=== PATIENT | male | born 1935 | race Caucasian/White ===

== ENCOUNTER → 2018-03-12 | Outpatient (CLI) | payer OTHER ==
[~2018-03-12] MED LIST: ALLOPURINOL100 MG PO; ASPIRIN EC81 MG PO; BYSTOLIC2.5 MG PO; LIVALO2 MG PO; NORVASC10 MG PO; WELCHOL625 MG PO
--- NOTE | 2018-03-13 07:15 | Diagnostic Imaging Report ---
EXAMINATION: MRI of the cervical spine without contrast HISTORY: Neck and posterior head pain for the last 3 weeks, cervical radiculopathy COMPARISON: None available TECHNIQUE: Sagittal T1, T2, STIR; axial T2, gradient echo. FINDINGS: Curvature: Normal lordosis. Vertebrae: No evidence of neoplasm, infection, or fracture. Foramen magnum: No mass, Chiari malformation, or basilar invagination. Spinal Cord: Normal size and signal intensity. Soft Tissues: Unremarkable. Degenerative changes: C1-C2: Unremarkable. C2-C3: Facet arthrosis without stenoses C3-C4: Small disc osteophyte, bilateral uncovertebral and facet arthrosis. Mild canal and bilateral foraminal narrowing. C4-C5: Disc osteophyte complex formation, bilateral uncovertebral and facet arthrosis. No significant canal or foraminal stenoses. C5-C6: Disc osteophyte complex formation, bilateral uncovertebral and facet arthrosis. Minimal bilateral foraminal narrowing. C6-C7: Uncovertebral and facet arthrosis. Minimal foraminal narrowing. No canal stenosis. C7-T1: Unremarkable. IMPRESSION: 1. No acute post traumatic cervical spine abnormalities. 2. Mild degenerative spinal canal and foraminal stenosis at C3-C4. 3. Mild multilevel degenerative changes in the remaining levels without significant spinal canal or foraminal stenosis as detail above. Signed by: Dr. Karli Mays M.D. on 03/13/2018 7:11 AM
== END ==
LOC: MRI 08:23
PROVIDERS: ATTEND Family Medicine
DX: M54.2 Cervicalgia (principal); M54.12 Radiculopathy, cervical region
CPT/HCPCS: 72141

== ENCOUNTER 2020-07-13 10:16 | Emergency (ER) | payer MEDICARE ==
[~2020-07-13] VITALS: Ht 177.8 cm; Wt 69.5 kg
[2020-07-13] MEDS ORDERED: TETANUS/DIPHTHERIA TOX ADULT 0.5 ML SYR IM ONE (10:45)
[2020-07-13] MEDS ORDERED: ONDANSETRON HCL INJ 2MG/ML 2ML 2 MG/ML VIAL IV STA (10:48)
--- NOTE | 2020-07-13 10:57 | Emergency Department Note ---
History of Present Illnes History of Present Illness Chief Complaint: fell approx 36 hours ago pain to right ribs History of Present Illness This is a 85 year old male . Historian: Patient Arrival Mode: Car Water Supervisor Required: No Onset (how long ago): day(s) (1.5) Location: right ribs RUQ abd and left forearm Radiation: Reports non-radiation Severity: moderate, severe Onset quality: sudden Duration (how long): day(s) (1.5) Timing of current episode: constant Progression: worsening Chronicity: new Relieving factors: none Exacerbating factors: movement, other (deep breath) Treatments prior to arrival: none Risk factors: elderly Past Medical/Family History Physician Review I have reviewed the patient's past medical and family history. Any updates have been documented here. Past Medical History Past Medical History: Hypertension Other Medical History: Stage 4 renal insufficiency Past Surgical History: T&A Other Surgery: Shoulder surgery Social History Smoking Cessation: Current every day smoker Counseling Performed: Yes Alcohol Use: Occasional Any Illegal Drug Use: No TB Exposure/Symptoms: No Physically hurt or threatened: No Other Any Pre-Existing Lines (PICC,: No Is patient up to date on immun: No Review of Systems Review of Systems Constitutional: Reports no symptoms EENTM: Reports no symptoms Cardiovascular: Reports no symptoms Respiratory: Reports pain on inspiration Gastrointestinal: Reports abdominal pain (mild right upper quad abdoinal pain) Genitourinary: Reports no symptoms Musculoskeletal: Reports other (bruis to left forearm) Integumentary: Reports no symptoms Neurological: Reports no symptoms, Reports other (no sycope or presyncopal symptoms prior to the fall. Also no dizziness ) Psychological: Reports no symptoms Endocrine: Reports no symptoms Hematological/Lymphatic: Reports no symptoms Review of other systems: All other systems negative Physical Exam Related Data Allergies: Coded Allergies: No Known Allergies (Unverified , 09/27/13) Vital signs reviewed: Yes Physical Exam CONSTITUTIONAL Constitutional: Present well-developed, Present well-nourished HENT HENT: Present normocephalic, Present atraumatic EYES Eyes: Reports PERRL, Reports conjunctivae normal, Reports EOM normal, Reports lids normal NECK Neck: Present ROM normal, Present supple PULMONARY Pulmonary: Present breath sounds normal, Present chest tenderness (right lower rib area) CARDIOVASCULAR Cardiovascular: Present regular rhythm, Present heart sounds normal, Present intact distal pulses, Present capillary refill normal, Present normal rate GASTROINTESTINAL Abdominal: Present soft, Present bowel sounds normal, Present tender (RUQ mildly tender) GENITOURINARY Genitourinary: Present exam deferred SKIN Skin: Present warm, Present dry, Present bruising (lateral right lower chest wall and mid forearm left side with a small skin tear) MUSCULOSKELETAL Musculoskeletal: Present ROM normal, Present tenderness (as above forearm) NEUROLOGICAL Neurological: Present alert, Present oriented x 3, Present DTRs normal, Present no gross motor or sensory deficits PSYCHOLOGICAL Psychological: Present mood/affect normal, Present behavior normal, Present thought content normal, Present judgement normal Results Laboratory Laboratory CBC wnl except for wbc 10.7 mildly elevated.. chem bun 39 with creatinne of 2.5 ow wnl Imaging Imaging results reviewed: Yes Impressions 7th thru 10 right lateral rib fractures no pneumo or hemothorax Assessment & Plan Medical Decision Making MDM felling better after morphine . will discharge with tylenol # 3 and needs to follow up with PMD Reassessment Reassessment time: 12:48 (felling better) Assessment & Plan Final Impression: (1) Rib fracture Depart Disposition: HOME, SELF-assisted Meds Active Scripts Acetaminophen/Codeine* (TYLENOL # 3*) 1 Ea Tab, 1 TAB PO QID PRN for pain for 5 Days, #20 0 Refills Prov:RAMESH KING MD 07/13/20 Reported Medications Rosuvastatin Calcium (CRESTOR) 10 Mg Tab, HS THERAPEUTICALLY SUBSTITUTED WITH SIMVASTATIN 40MG 07/13/20 Aspirin (ASPIRIN EC) 81 Mg Tablet.dr, 81 MG PO DAILY 09/27/13 Allopurinol (ALLOPURINOL) 100 Mg Tablet, 100 MG PO PRN 09/27/13 Nebivolol Hcl (BYSTOLIC) 2.5 Mg Tablet, 5 MG PO HS 09/27/13 Amlodipine Besylate (NORVASC) 10 Mg Tab, 10 MG PO DAILY 09/27/13 Discontinued Reported Medications Colesevelam Hcl (WELCHOL) 625 Mg Tablet, 625 MG PO BID 09/27/13 Pitavastatin Calcium (LIVALO) 2 Mg Tablet, 2 MG PO DAILY 09/27/13 Medications in the ED Tetanus/ Diphtheria Toxoids 0.5 ml ONCE ONCE IM ; Start 07/13/20 at 10:45; Stop 07/13/20 at 10:46; Status DC RAMESH KING MD Jul 13, 2020 10:57
[2020-07-13] MEDS ORDERED: MORPHINE SULFATE INJ 4 MG/ML INJ 1ML IV ONE (11:00)
--- OUTSIDE RECORDS SUMMARY | 2020-07-13 11:18 | XMS REPORT | Continuity of Care Document ---
Author Author [facility] t Organization [facility] Address [address] [place] [address] Phone Unavailable Care Team Providers Care Signing Agent Name Role Phone JUAN ANTNOIO ELDA Attphys Unavailable Payers Payer Name Policy Type Policy Number Effective Date Expiration Date S ource Problems This patient has no known problems. Allergies, Adverse Reactions, Alerts Allergy Name Allergy Type Status Severity Reaction(s) Onset Date Inacti ve Date Treating Clinician Comments Source No Known Allergies DA Active U 2014-01-06 00:00:00 [facility] Medications This patient has no known medications. Procedures This patient has no known procedures. Encounters Start Date/Time End Date/Time Encounter Type Admission Type Attendi [facility] Care Department Encounter ID Source 2019-04-01 08:18:00 2019-04-01 08:18:00 Outpatient [facility] [address] [facility] Results Test Description Test Time Test Comments Results Result Comments Source - Sling 2019-03-16 10:30:00 N kimberly: YOKO WILEY [facility] : 1935 Age/S: 84 / M [address] [facility] Unit #: [id number] Loc: [place] [address] Phys: Gaurang Austin MD Acct: [id number] Dis Date: Status: REG CLI PHONE #: [phone] Exam Date: 03/16/2019912 FAX #: [phone] Reason: N18.4 EXAMS: CPT CODE: [id number] [employer] [id number] HISTORY: Stage IV chronic kidney disease. COMPARISON: CT scan from April 18, 2015. Both kidneys are free from hydronephrosis and calyceal stones with marked hyperechogenicity bilaterally especially on the right suggesting severe chronic medical renal disease. No perinephric collections. Right kidney is measuring 10.3 x 5.4 x 5.1 cm. Innumerable Bosniak 1 lesions throughout the kidney. Left kidney measured 10.8 x 5.8 x 5 cm. Multiple Frank sniak 1 lesions as well with the largest measuring 3.7 cm in the lower pole. Unremarkable incompletely distended urinary bladder. IMPRESSION: Marked loss of corticomedullary differentiation bilaterally suggesting severe chronic medical renal disease. No hydronephrosis or calyceal stones with innumerable Bosniak 1 lesion bilaterally. Unremarkable incompletely distended urinary bladder. at 1030 Reported and signed by: Sanjiv Call M.D. CC: Gaurang Austin MD; Elda Wang Technologist: TERESA POWERS RT(R),[facility] Date/Time: 03/16/2019 (1030) [email or web address] Orig Print D/T: S: 03/16/2019 (1033) Probe: PAGE 1 Signed Report MRI SPINE CERVICAL WO [place] [address] Patient Name: YOKO WILEY MR #: [id number] : 1935 Age/Sex: 83/M Req #: [id number] [facility] Physician: Ordered by: ELDA WANG MD Report #: [id number] Location: MRI Room/Bed: Procedure: [id number] MRI/MRI SPINE CERVICAL WO Exam Date: Exam Time: REPORT STATUS: Signed EXAMINATION: MRI of the cervical spine without contrast HISTORY: Neck and posterior head pain for the last 3 weeks, cervical radiculopathy COMPARISON: None available TECHNIQUE: Sagittal T1, T2, STIR; axial T2, gradient echo. FINDINGS: Curvature: Normal lordosis. Vertebrae: No evidence of neoplasm, infection, or fracture. Foramen magnum: No mass, Chiari malformation, or basilar invagination. Spinal Cord: Normal size and signal intensity. Soft Tissues: Unremarkable. Degenerative changes: C1-C2: Unremarkable. C2-C3: Facet arthrosis without stenoses C3-C4: Small disc osteophyte, bilateral uncovertebral and facet arthrosis. Mild canal and bilateral foraminal narrowing. C4-C5: Disc osteophyte complex formation, bilateral uncovertebral and facet arthrosis. No significant canal or foraminal stenoses. C5-C6: Disc osteophyte complex formation, bilateral uncovertebral and facet arthrosis. Minimal bilateral foraminal narrowing. C6-C7: Uncovertebral and facet arthrosis. Minimal foraminal narrowing. No canal stenosis. C7-T1: Unremarkable. IMPRESSION: 1. No acute post traumatic cervical spine abnormalities. 2. Mild dege nerative spinal canal and foraminal stenosis at C3-C4. 3. Mild multilevel degenerative changes in the remaining levels without significant spinal canal or foraminal stenosis as detail above. Signed by: Dr. Daryl Mays M.D. on 03/13/2018 7:11 AM Dictated By: DARYL MAYS MD 0 Transcribed By: PAMELA on 03/13/18710 COPY TO: ELDA WANG MD
[2020-07-13] MEDS ORDERED: TETANUS/DIPHTHERIA TOX ADULT 0.5 ML SYR ONE (11:26)
[2020-07-13] MEDS ORDERED: BACITRACIN ZINC 0.9GM TP ONE (11:37)
[2020-07-13] MEDS ORDERED: CRESTOR10 MG (11:46)
--- NOTE | 2020-07-13 12:38 | Diagnostic Imaging Report ---
CT of the chest, abdomen, and pelvis, without contrast. History: ^FALL RIB PAIN Comparison: None available. Technique: CT of the chest, abdomen and pelvis without intravenous contrast and WITHOUT oral contrast. Dose modulation, iterative reconstruction, and/or weight-based adjustment of the mA/kV was utilized to reduce the radiation dose to as low as reasonably achievable. IV CONTRAST: None ORAL CONTRAST: None RADIATION DOSE: Total DLP: 554 mGy*cm COMPLICATIONS: None Discussion: LINES/ TUBES: None. LUNGS AND AIRWAYS: Mild apical emphysematous changes are noted. Lungs are mildly hyperexpanded. Negative for focal consolidation. No suspicious pulmonary nodule or mass. Trace basilar scarring is noted. PLEURA: The pleural spaces are clear. HEART AND MEDIASTINUM: The thyroid gland is normal. No mediastinal, hilar or axillary lymphadenopathy within the limitations of noncontrast technique. The heart is normal in size.. There is no pericardial effusion. Coronary artery calcifications are noted. HEPATOBILIARY: No focal hepatic lesions. Gallbladder is unremarkable. No biliary ductal dilatation. SPLEEN: No splenomegaly. PANCREAS: No focal masses or ductal dilatation. ADRENALS: No adrenal nodules. KIDNEYS/URETERS: There are multiple bilateral hypodense and isodense lesions within the kidneys. There are calcifications within the largest left hypodense lesion (axial image 35). A hyperdense lesion is noted within the left kidney anteriorly (axial image 32). Negative for hydronephrosis or renal calculus. Ureters are not dilated. PELVIC ORGANS/BLADDER: Urinary bladder is unremarkable. Prostate is within normal limits for size. Pelvic phlebolith are noted. No pelvic free fluid is noted. PERITONEUM/RETROPERITONEUM: No free air or fluid. LYMPH NODES: No lymphadenopathy. VESSELS: Moderate infrarenal calcified atherosclerotic changes of the abdominal aorta are noted. GI TRACT: Limited evaluation due to lack of IV and oral contrast. Stomach is decompressed. The descending and sigmoid colon are decompressed. Numerous diverticula are identified the sigmoid colon without surrounding inflammatory changes. Normal appendix is noted. Focal increased stool burden is noted in the proximal colon. BONES AND SOFT TISSUES: Within the posterior aspect of the right T5 vertebral body there is a well-circumscribed benign-appearing sclerotic lesion, likely a bone island (axial series image 47 of the chest). There are multiple right lateral lower rib fractures including the lateral aspect of the right eighth, ninth and 10th ribs. Question nondisplaced fracture of the right seventh rib. Mild displacement laterally of the 10th rib fractures (best noted on coronal abdominal series image #55). Mild to moderate multilevel degenerative changes of the thoracic spine are noted including calcification of the intervertebral disc space at T10-11. There are mild to moderate diffuse degenerative changes of the lumbar spine including advanced facet arthropathy at the lower lumbar spine. No compression deformities identified. No suspicious sclerotic or lytic lesion is identified. Soft tissues are unremarkable. IMPRESSION: 1. Multiple right lateral lower rib fractures extending from rib #8 through 10. Question additional nondisplaced fracture rib #7. Eighth and ninth rib fractures are not displaced. There is slight lateral displacement of the distal fragment of the 10th rib fracture. Negative for pneumothorax, adjacent hematoma or pleural effusion. No intra-abdominal free fluid or hematoma is identified. 2. Mild emphysematous changes. No suspicious pulmonary nodule or mass. 3. Multiple indeterminate bilateral hypodense and hyperdense renal lesions. Consider nonemergent follow-up contrast enhanced renal protocol MRI or CT. 4. Uncomplicated colonic diverticulosis. Signed by: Ranjith Peterson MD on 07/13/2020 12:35 PM
[2020-07-13] MEDS ORDERED: TYLENOL # 31 EA PO (12:49)
[2020-07-13 13:00] VITALS: BP 182/84
[2020-07-17] MEDS ORDERED: ASPIRIN EC81 MG PO (19:38)
== END 2020-07-13 13:13 | disposition home or self-care (01) ==
LOC: FSED 10:50
DX: S22.41XA Multiple fractures of ribs, right side, initial encounter for closed fracture (principal); R10.11 Right upper quadrant pain; M79.632 Pain in left forearm; I10 Essential (primary) hypertension; N28.9 Disorder of kidney and ureter, unspecified; F17.210 Nicotine dependence, cigarettes, uncomplicated
CPT/HCPCS: 71250; 74176; 80048; 85025; 90471; 90714; 96374; 96375; 99284; J2270; J2405

== ENCOUNTER → 2020-09-25 | Day surgery (SDC) | payer MEDICARE ==
[2020-09-21 09:58] LABS: INR 1.05; PROTHROMBIN TIME 14.2 seconds (11.9-14.5)
[2020-09-21 09:59] LABS: PARTIAL THROMBOPLASTIN TIME 40.9 seconds (23.8-35.5)
[2020-09-21 10:17] LABS: ANION GAP 13.1 mmol/L (8-16); CALCIUM 9.4 mg/dL (8.4-10.2); CREATININE, SERUM 2.54 mg/dL (0.72-1.25); POTASSIUM 5.1 mmol/L (3.5-5.1)
[~2020-09-25] MED LIST changes: +CRESTOR10 MG PO; +CYMBALTA30 MG PO; +GABAPENTIN100 MG PO; +HYOSCYAMINE 0.125 MG TAB ONE; +KEFLEX500 MG PO; +LIDOCAINE HCL 2% LOCAL INJ 5 ML SDV VIAL INJ ONE; +NICODERM CQ1 EAC2 TOP; +PROPOFOL IV EMULSION 10 MG/ML 20 ML VIAL ONE; +TYLENOL # 31 EA PO; +ULTRAM 50MG50 MG PO; +VITAMIN D310 MCG PO
[2020-09-25 16:25] VITALS: BP 146/77
== END | disposition home or self-care (01) ==
LOC: OR 10:19
PROVIDERS: ATTEND Internal Medicine Gastroenterology
DX: D12.0 Benign neoplasm of cecum (principal); D12.5 Benign neoplasm of sigmoid colon; K57.30 Diverticulosis of large intestine without perforation or abscess without bleeding; K64.8 Other hemorrhoids; K59.09 Other constipation; I10 Essential (primary) hypertension; F17.210 Nicotine dependence, cigarettes, uncomplicated; E78.00 Pure hypercholesterolemia, unspecified; Z01.812 Encounter for preprocedural laboratory examination; Z20.828 Contact with and (suspected) exposure to other viral communicable diseases; K21.9 Gastro-esophageal reflux disease without esophagitis; I25.10 Atherosclerotic heart disease of native coronary artery without angina pectoris; M10.9 Gout, unspecified
CPT/HCPCS: 36415; 45380; 80048; 85610; 85730; 88305; J2001; J2704; U0002; 45378; 45385